=== PATIENT | female | born 1965 | race Caucasian/White ===

== ENCOUNTER 2017-06-11 13:49 | Emergency (ER) | payer BC ==
--- NOTE | 2017-06-11 14:10 | ED ---
Lower Extremity - HPI Summary HPI Summary: 52-year-old female presents with left calf pain after returning from a trip to [place]. She states that they drove back and then she developed the pain. She states the pain is getting worse and that now is having pain at rest. States the pain now is in her left foot. She denies any injury. She denies any fevers or spreading redness. She denies any numbness or tingling. She denies any chest pain or shortness breath. She denies any family history of blood clots. She is nonsmoker. She is not on control. no recent surgeries. She has a low hemoglobin and is she is being treated with iron. She denies any history of abnormal bleeding. They're currently working up why her hemoglobin is low. - History of Current Complaint Chief Complaint: EDExtremityLower Stated Complaint: LEFT LEG PAIN Time Seen by Provider: 06/11/17 13:58 Pain Intensity: 5 - Allergies/Home Medications Allergies/Adverse Reactions: Allergies Allergy/AdvReac Type Severity Reaction Status Date / Time No Known Allergies Allergy Verified 06/11/17 14:04 Home Medications: Home Medications Iron-Vitamin C 65/125(Nf) [Vitron-C (NF)] 1 tab PO DAILY 06/11/17 [History Confirmed 06/11/17] PMH/Surg Hx/FS Hx/Imm Hx Endocrine/Hematology History: Reports: Hx Anemia Denies: Hx Anticoagulant Therapy Cardiovascular History: Denies: Hx Myocardial Infarction Infectious Disease History: No Infectious Disease History: Denies: Traveled Outside the [place] in Last 30 Days - Family History Known Family History: Negative: Blood Disorder - Social History Alcohol Use: None Substance Use Type: Reports: None Smoking Status (MU): Former Smoker Review of Systems Negative: Fever Negative: Chest Pain Negative: Shortness Of Breath Positive: Myalgia - left foot and calf pain All Other Systems Reviewed And Are Negative: Yes Physical Exam Triage Information Reviewed: Yes Vital Signs On Initial Exam: Initial Vitals Temp Pulse Resp BP Pulse Ox 99.0 F 78 18 125/67 99 06/11/17 13:54 06/11/17 13:54 06/11/17 13:54 06/11/17 13:54 06/11/17 13:54 Vital Signs Reviewed: Yes Appearance: Positive: Well-Appearing Skin: Positive: Warm, Dry Head/Face: Positive: Normal Head/Face Inspection Eyes: Positive: Normal, Conjunctiva Clear Respiratory/Lung Sounds: Positive: Clear to Auscultation, Breath Sounds Present Cardiovascular: Positive: Normal, RRR Musculoskeletal: Positive: Strength/ROM Intact - left calf, Edema Left - left ankle, Other - Tenderness left calf and foot, no erythema, sensation grossly intact, good pulses, capillary refill less than 2 seconds. Negative: Racheal Sign Left Neurological: Positive: Normal Psychiatric: Positive: Normal Diagnostics - Vital Signs Vital Signs Temp Pulse Resp BP Pulse Ox 06/11/17 13:54 99.0 F 78 18 125/67 99 - Laboratory Lab Statement: Any lab studies that have been ordered have been reviewed, and results considered in the medical decision making process. - Ultrasound No standard instances Ultrasound Interpretation: Positive (See Comments) - IMPRESSION: SUPERFICIAL THROMBOPHLEBITIS. NO LEFT LOWER EXTREMITY DEEP VEIN THROMBOSIS. Ultrasound Interpretation Completed By: Radiologist Lower Extremity Course/Dx - Course Course Of Treatment: 52-year-old female presents with left calf pain after returning from a trip to [place]. She states that they drove back and then she developed the pain. She states the pain is getting worse and that now is having pain at rest. States the pain now is in her left foot. She denies any injury. She denies any fevers or spreading redness. She denies any numbness or tingling. She denies any chest pain or shortness breath. She denies any family history of blood clots. She is nonsmoker. She is not on control. no recent surgeries. She has a low hemoglobin and is she is being treated with iron. She denies any history of abnormal bleeding. They're currently working up why her hemoglobin is low. on exam tenderness left calf. neurovascular intact. u/s shows throbphlebitis will treat with ibuprofen, ice and compression socks. will have follow up with primary. patient understand and agrees with plan. - Diagnoses Differential Diagnosis/HQI/PQRI: Positive: DVT, Fracture (Closed), Sprain Provider Diagnoses: Superficial thrombophlebitis Discharge - Sign-Out/Discharge Documenting (check all that apply): Discharge - Discharge Plan Condition: Good Disposition: HOME Patient Education Materials: Superficial Thrombophlebitis (ED) Referrals: Sadia Todd MD [Primary Care Provider] - Additional Instructions: Take ibuprofen every 6 hours for pain ice or heat whatever is more comfortable Compression socks Follow up with primary within 5 days Return to ED if develop any new or worsening symptoms - Billing Disposition and Condition Condition: GOOD Disposition: HOME
--- NOTE | 2017-06-11 15:10 | RAD ---
HISTORY: Left leg swelling COMPARISONS: None relevant TECHNIQUE: Multiple transverse and longitudinal ultrasound images were obtained of the left lower extremity from the level of the common femoral vein inferiorly through to the infrapopliteal veins using grayscale, color Doppler, and spectral Doppler imaging with and without compression and with augmentation. Comparison images were obtained of the contralateral common femoral vein. FINDINGS: VEINS: The deep venous system of the left lower extremity is compressible throughout its course, with normal flow on color Doppler imaging and normal response to augmentation on spectral Doppler imaging. There is thrombosis of superficial subcutaneous veins. SOFT TISSUES: Unremarkable. OTHER FINDINGS: None. IMPRESSION: SUPERFICIAL THROMBOPHLEBITIS. NO LEFT LOWER EXTREMITY DEEP VEIN THROMBOSIS.
[2017-06-11 15:37] VITALS: BP 103/54
== END 2017-06-11 15:35 | disposition home or self-care (01) ==
LOC: ED 13:49
DX: I80.02 Phlebitis and thrombophlebitis of superficial vessels of left lower extremity (principal); Z87.891 Personal history of nicotine dependence; D64.9 Anemia, unspecified
CPT/HCPCS: 99282